=== PATIENT | female | born 1965 | race Caucasian/White ===

== ENCOUNTER 2016-12-08 23:33 | Emergency (ER) | payer OTHER ==
[2016-12-08 23:41] VITALS: RESP 18
--- NOTE | 2016-12-09 01:11 | ED ---
Fall HPI - General Chief Complaint: Fall Stated Complaint: fall Time Seen by Provider: 12/08/16 23:43 Source: patient, RN notes reviewed Mode of arrival: ambulatory Limitations: no limitations - History of Present Illness Initial Comments: 51-year-old femalePresents emergency Department with chief complaint fall, extremity injury. Patient states that she went back to her old house and states that she tripped and fell forward. Patient states fell on Monday. Patient states that she has continuation left knee pain, left toe pain, right elbow and right upper arm. Patient also complains of neck pain. She denies any significant head injury no LOC. She states she just very sore has been taking some [id number] medication with no relief.patient states she is able to ambulate but states is sore left knee. Patient has full range of motion of her right arm states that she has some bruising noted to her right humerus region. - Related Data Home Medications Medication Instructions Recorded Confirmed No Known Home Medications [No 05/10/15 12/08/16 Known Home Medications] Allergies Allergy/AdvReac Type Severity Reaction Status Date / Time clarithromycin [From Biaxin] Allergy Unknown Verified 12/08/16 23:41 codeine Allergy Unknown Verified 12/08/16 23:41 fentanyl Allergy Unknown Verified 12/08/16 23:41 influenza virus vaccine, Allergy Unknown Verified 12/08/16 23:41 specific [Influenza Virus Vacc,Specific] latex Allergy Unknown Verified 12/08/16 23:41 lorazepam [From Ativan] Allergy Unknown Verified 12/08/16 23:41 NSAIDS (Non-Steroidal Allergy Unknown Verified 12/08/16 23:41 Anti-Inflamma Penicillins Allergy Unknown Verified 12/08/16 23:41 Sulfa (Sulfonamide Allergy Anaphylaxis Verified 12/08/16 23:41 Antibiotics) Review of Systems ROS Statement: Those systems with pertinent positive or pertinent negative responses have been documented in the HPI. ROS Other: All systems not noted in ROS Statement are negative. 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 Absent: scleral icterus, conjunctival injection, periorbital swelling Neck exam: Present: normal inspection, tenderness (mild paraspinal tenderness no vertebral tenderness no step-off deformity), full ROM. Absent: meningismus, lymphadenopathy Respiratory exam: Present: normal lung sounds bilaterally. Absent: respiratory distress, wheezes, rales, rhonchi, stridor Cardiovascular Exam: Present: regular rate, normal rhythm, normal heart sounds. Absent: systolic murmur, diastolic murmur, rubs, gallop, clicks Extremities exam: Present: other (left knee there is small abrasion noted patient has pain with anterior surface of the knee though she has full range of motion. There is mild tenderness over the left first and second digit there is old scars noted, chronic deformity of the toes. Patient's legs are neurovascular intact, right upper arm humerus region there is an area of ecchymosis with surrounding tenderness patient's full range of motion of elbow and right shoulder. Patient's left upper extremity within normal limits. Patient does have equal pulses of all extremities.) Back exam: Present: normal inspection. Absent: full ROM, tenderness Neurological exam: Present: alert, oriented X3, CN II-XII intact, reflexes normal. Absent: motor sensory deficit Skin exam: Present: warm, dry, intact, normal color. Absent: rash Course Vital Signs 12/08/16 12/09/16 23:37 00:49 Temperature 98.8 F Pulse Rate 71 77 Respiratory 18 18 Rate Blood Pressure 138/65 127/58 O2 Sat by Pulse 95 100 Oximetry Medical Decision Making - Medical Decision Making 51-year-old female presented for fall, multiple injuries. Patient x-rays were reviewed by me and radiologist there is no acute fractures. Patient be discharged at this time. Disposition Clinical Impression: Fall, Multiple contusions, Left knee pain, Neck pain, Right arm pain Disposition: HOME SELF-CARE Condition: Stable Instructions: Contusion in Adults (ED) Additional Instructions: Please return to the Emergency Department if symptoms worsen or any other concerns. Referrals: Terrance Zamarripa MD [Primary Care Provider] - 1-2 days Time of Disposition: 01:24
--- NOTE | 2016-12-09 01:17 | XR ---
EXAM: XR Left Knee, 3 views CLINICAL HISTORY: Pain after fall. TECHNIQUE: Three views of the left knee. COMPARISON: No relevant prior studies available. FINDINGS: Bones/joints: Unremarkable. No acute fracture. No dislocation. Soft tissues: Prominent soft tissues related to habitus. No radiopaque foreign body. IMPRESSION: No radiographic evidence of acute osseous abnormality of the left knee.
--- NOTE | 2016-12-09 01:18 | XR ---
EXAM: XR Cervical Spine, 5 Views CLINICAL HISTORY: Pain. Fall. TECHNIQUE: Frontal, lateral, oblique and odontoid views of the cervical spine. COMPARISON: No relevant prior studies available. FINDINGS: Vertebrae: No radiographic evidence of acute fracture. Normal alignment. Disc spaces/neural foramina: No acute findings. No significant disc space or neural foraminal narrowing. Soft tissues: Unremarkable. IMPRESSION: No radiographic evidence of acute fracture or traumatic subluxation of the cervical spine.
--- NOTE | 2016-12-09 01:20 | XR ---
EXAM: XR Right Humerus, 2 Views CLINICAL HISTORY: Pain. Fall. TECHNIQUE: Frontal and lateral views of the right humerus. COMPARISON: No relevant prior studies available. FINDINGS: Bones/joints: No acute fracture. No dislocation. Soft tissues: No evidence of significant soft tissue abnormality. No radiopaque foreign body. IMPRESSION: No radiographic evidence of acute osseous abnormality of the right humerus.
--- NOTE | 2016-12-09 01:25 | XR ---
EXAM: XR Left Foot Complete, 3 Views CLINICAL HISTORY: Pain. Fall. TECHNIQUE: Frontal, lateral and oblique views of the left foot. COMPARISON: No relevant prior studies available. FINDINGS: Bones/joints: No radiographic evidence of acute fracture or dislocation of the left foot. Postsurgical changes of bunionectomy, hammertoe repair of the second toe and two screws along the distal fifth metatarsal. Apparent hammertoe deformities of the third and fifth toes. Soft tissues: Suspected soft tissue swelling along the lateral aspect of the foot. No radiopaque foreign body. IMPRESSION: 1. No radiographic evidence of acute fracture or dislocation of the left foot. 2. Postsurgical changes of the left foot. 3. Suspect mild soft tissue swelling along the lateral aspect of the foot. Correlate clinically.
[2016-12-09 01:44] VITALS: BP 144/78; PULSE 68; TEMP 97.5
== END 2016-12-09 01:42 | disposition home or self-care (01) ==
LOC: EC 23:33
DX: S40.021A Contusion of right upper arm, initial encounter (principal); S80.212A Abrasion, left knee, initial encounter; M54.2 Cervicalgia; M79.675 Pain in left toe(s); Z95.810 Presence of automatic (implantable) cardiac defibrillator; Z88.0 Allergy status to penicillin; Z88.1 Allergy status to other antibiotic agents; Z88.2 Allergy status to sulfonamides; Z88.5 Allergy status to narcotic agent; Z88.6 Allergy status to analgesic agent; Z88.7 Allergy status to serum and vaccine; Z88.8 Allergy status to other drugs, medicaments and biological substances; Z91.040 Latex allergy status; Z87.891 Personal history of nicotine dependence; W01.0XXA Fall on same level from slipping, tripping and stumbling without subsequent striking against object, initial encounter; Y92.019 Unspecified place in single-family (private) house as the place of occurrence of the external cause
CPT/HCPCS: 72050; 99283

== ENCOUNTER 2017-01-20 17:04 | Emergency (ER) | payer OTHER ==
[2017-01-20 17:11] VITALS: BP 141/68; PULSE 93; RESP 18; TEMP 97.9
--- NOTE | 2017-01-20 17:41 | XR ---
EXAMINATION TYPE: XR elbow limited RT DATE OF EXAM: 01/20/2017 COMPARISON: NONE HISTORY: Pain TECHNIQUE: 3 views FINDINGS: I see no fracture nor dislocation. Joint spaces are normal. There is no sign of elbow joint effusion. IMPRESSION: Negative right elbow exam
--- NOTE | 2017-01-20 17:42 | ED ---
General Adult HPI - General Chief complaint: Extremity Injury, Upper Stated complaint: Fall Time Seen by Provider: 01/20/17 17:13 Source: patient, RN notes reviewed, old records reviewed Mode of arrival: ambulatory Limitations: no limitations - History of Present Illness Initial comments: 51-year-old female presents emergency Department chief complaint of bilateral hip and lower back pain, right shoulder and elbow pain one week after a fall. Patient reports she slipped in a puddle and landed on her buttocks and right shoulder and elbow. Patient reports that she's been taking Motrin off and on but the pain is continue to persist. Patient states that she feels some Kirkey cracking whenever she walks with her hips. She denies any significant saddle anesthesias, or pain radiating down the legs. Patient states that she's had no fever or chills, denies any chest pain, shortness breath, vomiting, nausea, vomiting. - Related Data Previous Rx's Medication Instructions Recorded Hydrocodone/Acetaminophen [[place] 1 tab PO Q6HR PRN #15 tab 12/09/16 5-325] Cyclobenzaprine [Flexeril] 10 mg PO TID #20 tab 01/20/17 Allergies Allergy/AdvReac Type Severity Reaction Status Date / Time clarithromycin [From Biaxin] Allergy Unknown Verified 01/20/17 17:10 codeine Allergy Unknown Verified 01/20/17 17:10 fentanyl Allergy Unknown Verified 01/20/17 17:10 influenza virus vaccine, Allergy Unknown Verified 01/20/17 17:10 specific [Influenza Virus Vacc,Specific] latex Allergy Unknown Verified 01/20/17 17:10 lorazepam [From Ativan] Allergy Unknown Verified 01/20/17 17:10 NSAIDS (Non-Steroidal Allergy Unknown Verified 01/20/17 17:10 Anti-Inflamma Penicillins Allergy Unknown Verified 01/20/17 17:10 Sulfa (Sulfonamide Allergy Anaphylaxis Verified 01/20/17 17:10 Antibiotics) Review of Systems ROS Statement: Those systems with pertinent positive or pertinent negative responses have been documented in the HPI. ROS Other: All systems not noted in ROS Statement are negative. 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 No acute distress. Limitations: no limitations General appearance: alert, in no apparent distress Head exam: Present: atraumatic, normocephalic, normal inspection Eye exam: Present: normal appearance, PERRL, EOMI. Absent: scleral icterus, conjunctival injection, periorbital swelling ENT exam: Present: normal exam, mucous membranes moist Neck exam: Present: normal inspection. Absent: tenderness, meningismus, lymphadenopathy Respiratory exam: Present: normal lung sounds bilaterally. Absent: respiratory distress, wheezes, rales, rhonchi, stridor Cardiovascular Exam: Present: regular rate, normal rhythm, normal heart sounds. Absent: systolic murmur, diastolic murmur, rubs, gallop, clicks GI/Abdominal exam: Present: soft, normal bowel sounds. Absent: distended, tenderness, guarding, rebound, rigid Extremities exam: Present: normal inspection, full ROM, normal capillary refill. Absent: tenderness, pedal edema, joint swelling, calf tenderness Left Lower Leg exam: Present: full ROM Ankle exam: Present: normal inspection, full ROM Foot/Toe exam: Present: normal inspection, full ROM Neurovascular tendon exam: Present: no vascular compromise Gait: observed and normal Back exam: Present: normal inspection Neurological exam: Present: alert, oriented X3, CN II-XII intact Psychiatric exam: Present: normal affect, normal mood Course Vital Signs 01/20/17 17:07 Temperature 97.9 F Pulse Rate 93 Respiratory 18 Rate Blood Pressure 141/68 O2 Sat by Pulse 97 Oximetry Medical Decision Making - Medical Decision Making 51-year-old male presents emergency length of bilateral hip pain, right elbow and right shoulder pain after fall 1 week ago. She reports that she has full range of motion. She really complains of lower back and hip pain. Patient was given x-rays. All x-rays were reviewed and showed no evidence of any acute process. Patient reports that she is sober, does not want to take any narcotics. She has no major deformities or bruising noted over her hips. She is ambulatory without difficulty. Patient will be discharged at this time with a short course of muscle relaxers. Discussed falling up with orthopedic if symptoms continue persist. agrees to treatment plan will comply. Return parameters were discussed. - Radiology Data Radiology results: report reviewed Shoulder x-ray shows minimal calcific tendinitis. No evidence of fracture. X-rays negative for lumbar spine. Erythro [place] aorta noted. Negative pelvis and bilateral hip exam. Negative right elbow exam. Disposition Clinical Impression: Right elbow pain, Shoulder pain, right, Lumbar strain Disposition: HOME SELF-CARE Condition: Good Instructions: Hip Sprain (ED) Additional Instructions: Patient advised to alternate between ice and heat for the lower back and extremity pain. 20 minutes on 20 minutes off. Take anti-inflammatory medicine muscle relaxers. Recommended follow-up with PCP and orthopedic. Return to the emergency department if any alarming signs or symptoms occur. Prescriptions: Cyclobenzaprine [Flexeril] 10 mg PO TID #20 tab Referrals: Terrance Zamarripa MD [Primary Care Provider] - 1-2 days Golden Jauregui PAC [PHYSICIAN [employer]RO[employer] CAR REPAIRMAN] - 1-2 days Time of Disposition: 17:52
--- NOTE | 2017-01-20 17:42 | XR ---
EXAMINATION TYPE: XR shoulder limited RT DATE OF EXAM: 01/20/2017 COMPARISON: NONE HISTORY: Shoulder pain TECHNIQUE: 2 views FINDINGS: I see no fracture nor dislocation. There is minimal calcification at the greater tuberosity . AC joint is intact. IMPRESSION: Minimal calcific tendinitis. No fracture.
--- NOTE | 2017-01-20 17:44 | XR ---
EXAMINATION TYPE: XR Hip Bilateral and AP pelvis DATE OF EXAM: 01/20/2017 COMPARISON: NONE HISTORY: Hip pain TECHNIQUE: 5 views FINDINGS: The pelvic ring is intact. Proximal femurs and hip joints are intact. There is no sign of h ip dysplasia. Sacroiliac joints are intact. Hip joint spaces are fairly normal. IMPRESSION: Negative pelvis and bilateral hip exam.
--- NOTE | 2017-01-20 17:45 | XR ---
EXAMINATION TYPE: XR lumbar spine 2 or 3V DATE OF EXAM: 01/20/2017 COMPARISON: NONE HISTORY: Pain TECHNIQUE: 3 views FINDINGS: Vertebra have normal alignment. Posterior elements are intact. Abdominal aorta is atheromat ous. Sacroiliac joints are intact. Disc spaces are normal for age. IMPRESSION: Negative lumbar spine exam. Atheromatous aorta noted.
== END 2017-01-20 18:03 | disposition home or self-care (01) ==
LOC: EC 17:04
DX: S39.012A Strain of muscle, fascia and tendon of lower back, initial encounter (principal); M25.521 Pain in right elbow; M75.31 Calcific tendinitis of right shoulder; I70.0 Atherosclerosis of aorta; M25.551 Pain in right hip; M25.552 Pain in left hip; Z87.891 Personal history of nicotine dependence; Z88.0 Allergy status to penicillin; Z88.1 Allergy status to other antibiotic agents; Z88.2 Allergy status to sulfonamides; Z88.5 Allergy status to narcotic agent; Z88.6 Allergy status to analgesic agent; Z88.7 Allergy status to serum and vaccine; Z88.8 Allergy status to other drugs, medicaments and biological substances; Z91.040 Latex allergy status; Z98.890 Other specified postprocedural states; W01.0XXA Fall on same level from slipping, tripping and stumbling without subsequent striking against object, initial encounter
CPT/HCPCS: 72100; 73521; 99284

== ENCOUNTER → 2018-01-20 | Outpatient (CLI) | payer OTHER ==
[2018-01-20 09:52] LABS: Basophils # (A) 0.1 k/uL (0-0.2); Basophils % (A) 1 %; Eosinophils # (A) 0.5 k/uL (0-0.7); Eosinophils % (A) 6 %; HCT 41.4 % (34.0-46.0); HGB 13.3 gm/dL (11.4-16.0); Lymphocytes # (A) 3.2 k/uL (1.0-4.8); Lymphocytes % (A) 36 %; MCHC 32.1 g/dL (31.0-37.0); MCV 87.2 fL (80.0-100.0); Mean Platelet Volume 6.7; Monocytes # (A) 0.5 k/uL (0-1.0); Monocytes % (A) 5 %; Neutrophils # (A) 4.5 k/uL (1.3-7.7); Neutrophils % (A) 50 %; Platelet Count 275 k/uL (150-450); RBC 4.75 m/uL (3.80-5.40); RDW 14.2 % (11.5-15.5); WBC 8.9 k/uL (3.8-10.6)
[2018-01-20 10:14] LABS: ALT 22 U/L (9-52); AST 22 U/L (14-36); Albumin 4.3 g/dL (3.5-5.0); Alkaline Phosphatase 95 U/L (38-126); Anion Gap 9 mmol/L; Blood Urea Nitrogen 18 mg/dL (7-17); Calcium 9.6 mg/dL (8.4-10.2); Carbon Dioxide 27 mmol/L (22-30); Chloride 105 mmol/L (98-107); Cholesterol 230 mg/dL (<200); Glucose 96 mg/dL (74-99); HDL Cholesterol 48 mg/dL (40-60); LDL Cholesterol,Calculated 154 mg/dL (0-99); Potassium 4.8 mmol/L (3.5-5.1); Sodium 141 mmol/L (137-145); Total Bilirubin 0.5 mg/dL (0.2-1.3); Total Protein 7.4 g/dL (6.3-8.2); Triglycerides 140 mg/dL (<150)
[2018-01-20 10:24] LABS: T4, Free (Free Thyroxine) 0.72 ng/dL (0.78-2.19)
[2018-01-20 18:16] LABS: Hemoglobin A1C 5.4 % (4.0-6.0)
== END | disposition home or self-care (01) ==
LOC: LABWHC1 08:39
PROVIDERS: ATTEND Family Medicine
DX: I10 Essential (primary) hypertension (principal); E78.5 Hyperlipidemia, unspecified; E88.81 Metabolic syndrome and other insulin resistance
CPT/HCPCS: 36415; 80053; 80061; 82306; 83036; 84439; 84443; 85025

== ENCOUNTER → 2020-04-03 | Outpatient (CLI) | payer OTHER | END | disposition home or self-care (01) | LOC: LABWHC1 12:49 | PROVIDERS: ATTEND Surgery | DX: Z20.828 Contact with and (suspected) exposure to other viral communicable diseases (principal) ==

== ENCOUNTER 2022-08-13 23:40 | Emergency (ER) | payer OTHER ==
[2022-08-13 23:50] VITALS: BP 137/77; PULSE 86; RESP 18; TEMP 98
[2022-08-14] MEDS ORDERED: MECLIZINE 12.5 MG TAB PO STA (00:15)
--- NOTE | 2022-08-14 00:22 | ED ---
General Adult HPI - General Chief complaint: Neck Pain/Injury Stated complaint: Painful growth on back of neck Time Seen by Provider: 08/13/22 23:54 Source: patient Mode of arrival: ambulatory Limitations: no limitations - History of Present Illness Initial comments: Patient is a 57-year-old female presenting with chief complaint of "there is a growth on the back of my neck". Patient states that for several months she's noticed a painful lump to the back of her neck. Patient was seen by her PCP and instructed to follow-up with ENT. Patient has yet to follow up with ENT. She has no fever, chills, headache, vision or hearing changes, numbness, tingling, weakness. No injury or trauma. Patient also states that she at times has dizzy spells with moving her head. She states that she has had these dizzy spells for 15 years, she normally takes meclizine which helped alleviate her symptoms however she is currently out of meclizine. She states that she has had tympanostomy tubes replaced every few years to help with these dizzy spells but has not had them replaced in over a year and a half. She denies any chest pain, difficulty breathing, palpitations, abdominal pain, nausea, vomiting. - Related Data Previous Rx's Medication Instructions Recorded Hydrocodone/Acetaminophen [[place] 1 tab PO Q6HR PRN #15 tab 12/09/16 5-325] Cyclobenzaprine [Flexeril] 10 mg PO TID #20 tab 01/20/17 Meclizine [Antivert] 25 mg PO BID PRN #30 tab 08/14/22 Allergies Allergy/AdvReac Type Severity Reaction Status Date / Time clarithromycin [From Biaxin] Allergy Unknown Verified 08/13/22 23:47 codeine Allergy Unknown Verified 08/13/22 23:47 fentanyl Allergy Unknown Verified 08/13/22 23:47 influenza virus vaccine, Allergy Unknown Verified 08/13/22 23:47 specific [Influenza Virus Vacc,Specific] latex Allergy Unknown Verified 08/13/22 23:47 lorazepam [From Ativan] Allergy Unknown Verified 08/13/22 23:47 NSAIDS (Non-Steroidal Allergy Unknown Verified 08/13/22 23:47 Anti-Inflamma Penicillins Allergy Unknown Verified 08/13/22 23:47 Sulfa (Sulfonamide Allergy Anaphylaxis Verified 08/13/22 23:47 Antibiotics) Review of Systems ROS Statement: Those systems with pertinent positive or pertinent negative responses have been documented in the HPI. ROS Other: All systems not noted in ROS Statement are negative. 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 Absent: periorbital swelling Neck exam: Present: normal inspection, full ROM, lymphadenopathy. Absent: tenderness Respiratory exam: Present: normal lung sounds bilaterally. Absent: respiratory distress, wheezes, rales, rhonchi, stridor Cardiovascular Exam: Present: regular rate, normal rhythm, normal heart sounds. Absent: systolic murmur, diastolic murmur, rubs, gallop, clicks Neurological exam: Present: alert, oriented X3, CN II-XII intact Expanded Patient oriented to: Present: person, place, time Speech: Present: fluid speech Cranial nerves: EOM's Intact: Normal Eye Response: (4) open spontaneously Motor Response: (6) obeys commands Verbal Response: (5) oriented Kinder Total: 15 Psychiatric exam: Present: normal affect, normal mood Skin exam: Present: warm, dry, intact, normal color. Absent: rash Course Vital Signs 08/13/22 23:47 Temperature 98 F Pulse Rate 86 Respiratory 18 Rate Blood Pressure 137/77 O2 Sat by Pulse 98 Oximetry Medical Decision Making - Medical Decision Making Was pt. sent in by a medical professional or institution (, PA, DIRECTOR [employer], urgent care, hospital, or assisted...) When possible be specific @ -No Did you speak to anyone other than the patient for history (EMS, parent, family, police, friend...)? What history was obtained from this source @ -No Did you review nursing and triage notes (agree or disagree)? Why? @ -I reviewed and agree with nursing and triage notes Were old charts reviewed (outside hosp., previous admission, EMS record, old EKG, old radiological studies, urgent care reports/EKG's, assisted records)? Report findings @ -No old charts were reviewed Differential Diagnosis (chest pain, altered mental status, abdominal pain women, abdominal pain men, vaginal bleeding, weakness, fever, dyspnea, syncope, headache, dizziness, GI bleed, back pain, seizure, CVA, palpatations, mental health, musculoskeletal)? @ -MDM Differential Dizziness: Benign paroxysmal positional Vertigo, Menieres disease, otitis media, acoustic neuroma, vertebrobasilar insufficiency, cerebellar stroke, encephalitis, hypovolemic, arrhythmia, coronary artery syndrome, anemia this is not meant to be an all-inclusive list EKG interpreted by me (3pts min.). @ -As above X-rays interpreted by me (1pt min.). @ -None done CT interpreted by me (1pt min.). @ -None done U/S interpreted by me (1pt. min.). @ -None done What testing was considered but not performed or refused? (CT, X-rays, U/S, labs)? Why? @ -None What meds were considered but not given or refused? Why? @ -None Did you discuss the management of the patient with other professionals (professionals i.e. , PA, [employer], lab, RT, psych nurse, social security benefits interviewer, car chaser, teacher, air antisubmarine officer, hospice case manager)? Give summary @ -No Was smoking cessation discussed for >3mins.? @ -No Was critical care preformed (if so, how long)? @ -No Were there social determinants of health that impacted care today? How? (Homelessness, low income, unemployed, alcoholism, drug addiction, transportation, low edu. Level, literacy, decrease access to med. care, [facility], rehab)? @ -No Was there de-escalation of care discussed even if they declined (Discuss DNR or withdrawal of care, Hospice)? DNR status @ -No What co-morbidities impacted this encounter? (DM, HTN, Smoking, COPD, CAD, Cancer, CVA, ARF, Chemo, Hep., AIDS, mental health diagnosis, sleep apnea, morbid obesity)? @ -None Was patient admitted / discharged? Hospital course, mention meds given and route, prescriptions, significant lab abnormalities, going to OR and other pertinent info. @ -Patient is a 57-year-old female presenting with chief complaint of bump to the back of her neck for several months and dizzy spells for the last 15 years. These dizzy spells have remained unchanged for the past 15 years, patient in the past is taking meclizine which has alleviated her symptoms however she is currently out. No dizziness at this time. She is also concerned bump the back of her neck. Her PCP advised her to follow up with ENT but she has yet to do so. She is requesting referral. Physical examination is unremarkable. No foc al neurological deficits. She has full range of motion of the neck. Patient is provided with referral to ENT and a refill on her meclizine. Patient is agreeable discharge at this time. Follow-up with PCP. Report back to ER with any new or worsening symptoms. Discussed return parameters and answered all questions. Patient conveyed verbal understanding and agreed to the plan. I discussed this case in detail with my attending Dr. Ziegler Undiagnosed new problem with uncertain prognosis? @ -No Drug Therapy requiring intensive monitoring for toxicity (Heparin, Nitro, Insulin, Cardizem)? @ -No Were any procedures done? @ -No Diagnosis/symptom? @ -Lymphadenopathy Acute, or Chronic, or Acute on Chronic? @ -Acute Uncomplicated (without systemic symptoms) or Complicated (systemic symptoms)? @ -uncomplicated Side effects of treatment? @ -No Exacerbation, Progression, or Severe Exacerbation? @ -No Poses a threat to life or bodily function? How? (Chest pain, [place], DC, pneumonia, PE, COPD, DKA, ARF, appy, cholecystitis, CVA, Diverticulitis, Homicidal, S uicidal, threat to staff... and all critical care pts) @ -No Disposition Clinical Impression: BPPV (benign paroxysmal positional vertigo), Lymphadenopathy Disposition: HOME SELF-CARE Condition: Good Instructions (If sedation given, give patient instructions): Lymphadenopathy (ED), Benign Paroxysmal Positional Vertigo (ED) Additional Instructions: Follow-up with PCP and ENT. Report back to ER with any new or worsening symptoms. Prescriptions: Meclizine [Antivert] 25 mg PO BID PRN #30 tab PRN Reason: Vertigo Is patient prescribed a controlled substance at d/c from ED?: No Referrals: Rachael Brian MD [Primary Care Provider] - 1-2 days Julito Barron MD [STAFF PHYSICIAN] - 1-2 days Time of Disposition: 00:16
== END 2022-08-14 00:37 | disposition home or self-care (01) ==
LOC: EC 23:40
DX: H81.10 Benign paroxysmal vertigo, unspecified ear (principal); R59.1 Generalized enlarged lymph nodes; F41.9 Anxiety disorder, unspecified; Z88.5 Allergy status to narcotic agent; Z88.7 Allergy status to serum and vaccine; Z88.0 Allergy status to penicillin; Z88.8 Allergy status to other drugs, medicaments and biological substances; Z91.040 Latex allergy status; Z87.891 Personal history of nicotine dependence; Z88.1 Allergy status to other antibiotic agents; Z88.2 Allergy status to sulfonamides; Z88.6 Allergy status to analgesic agent
CPT/HCPCS: 99283

== ENCOUNTER → 2022-08-22 | Outpatient (CLI) | payer OTHER ==
[2022-08-22 16:47] LABS: HCT 43.2 % (37.2-46.3); HGB 13.8 g/dL (12.0-15.0); MCH 27.9 pg (27.0-32.0); MCHC 31.9 g/dL (32.0-37.0); MCV 87.3 fL (80.0-97.0); Mean Platelet Volume 10.3 fL (9.5-12.2); NRBC Per 100 WBC 0 /100 WBCS (0.0-0.0); Platelet Count 258 X 10*3/uL (140-440); RBC 4.95 X 10*6/uL (4.10-5.20); RDW 14.5 % (11.5-14.5); WBC 9.11 X 10*3/uL (4.50-10.00)
[2022-08-22 17:08] LABS: African American GFR (CKD) 94.5 (60.0-200.0); Anion Gap 13.8 mmol/L (10.00-18.00); Blood Urea Nitrogen 13.9 mg/dL (9.0-27.0); Non-African American GFR(CKD) 81.5 (60.0-200.0); Potassium 4.5 mmol/L (3.5-5.5)
== END | disposition home or self-care (01) ==
LOC: LABPAT 07:45
PROVIDERS: ATTEND Internal Medicine
DX: Z01.812 Encounter for preprocedural laboratory examination (principal); R07.9 Chest pain, unspecified
CPT/HCPCS: 80051; 82565; 84520; 85027

== ENCOUNTER → 2022-08-23 | Day surgery (SDC) | payer OTHER ==
[~2022-08-23] MED LIST: NITROGLYCERIN SL TABS 0.4 MG TAB SUBLINGUAL PRN; SODIUM CHLORIDE 0.9% 1,000 ML in EMPTY BAG 1 BAG IV SCH
[2022-08-23 10:57] VITALS: BP 175/111; PULSE 109; RESP 18; TEMP 97
== END ==
LOC: CATHCVL 10:20
PROVIDERS: ATTEND Internal Medicine
DX: R07.9 Chest pain, unspecified (principal); Z53.9 Procedure and treatment not carried out, unspecified reason

== ENCOUNTER 2022-10-03 22:04 | Emergency (ER) | payer OTHER ==
[2022-10-03 22:24] VITALS: BP 155/84; PULSE 94; RESP 17; TEMP 98
--- NOTE | 2022-10-04 | ED ---
General Adult HPI - General Chief complaint: ENT Stated complaint: Sore throat, Congestion, Dental Pain Time Seen by Provider: 10/03/22 23:40 Source: patient, RN notes reviewed Mode of arrival: ambulatory Limitations: no limitations - History of Present Illness Initial comments: Patient is a 49-year-old female presenting to the ER today with a chief comp laint of dental pain. States she is purulent blister yesterday which prompted her visit to the ER today. She has a appointment with a dentist in two days. She reports recent chills or night sweats. Denies any fevers. pt states the pain is made worse with hot, cold, chewing and touch. reports radiating pain to her nose and eye. pt takes tylenol at home for pain. pt states she has a bump on the back of her neck she recently noticed denies pain with touch. denies headaches, chest pain, shortness of breath, abdominal pain. - Related Data Home Medications Medication Instructions Recorded Confirmed Acetaminophen Tab [Tylenol] 650 mg PO Q6H 08/23/22 09/16/22 Previous Rx's Medication Instructions Recorded Meclizine [Antivert] 25 mg PO BID PRN #30 tab 08/14/22 HYDROcodone/APAP 7.5-325MG [[place] 1 tab PO Q6HR PRN 3 Days #12 tab 10/04/22 7.5-325] Allergies Allergy/AdvReac Type Severity Reaction Status Date / Time clarithromycin [From Biaxin] Allergy Severe Anaphylaxis Verified 10/03/22 22:13 fentanyl Allergy Severe Anaphylaxis Verified 10/03/22 22:13 hydromorphone [From Dilaudid] Allergy Severe Anaphylaxis Verified 10/03/22 22:13 influenza virus vaccine, Allergy Severe Rash/Hives Verified 10/03/22 22:13 specific [Influenza Virus Vacc,Specific] latex Allergy Severe Anaphylaxis Verified 10/03/22 22:13 NSAIDS (Non-Steroidal Allergy Severe Anaphylaxis Verified 10/03/22 22:13 Anti-Inflamma Penicillins Allergy Severe Anaphylaxis Verified 10/03/22 22:13 Sulfa (Sulfonamide Allergy Severe Anaphylaxis Verified 10/03/22 22:13 Antibiotics) codeine Allergy Rash/Hives Verified 10/03/22 22:13 Iodinated Contrast Media Allergy Rash/Hives Verified 10/03/22 22:13 lorazepam [From Ativan] Allergy Unknown Verified 10/03/22 22:13 morphine Allergy Hallucinati Verified 10/03/22 22:13 ons diphenhydramine AdvReac Unknown Verified 10/03/22 22:13 [From Benadryl] Review of Systems ROS Statement: Those systems with pertinent positive or pertinent negative responses have been documented in the HPI. ROS Other: All systems not noted in ROS Statement are negative. Past Medical History Past Medical History: Cancer, Musculoskeletal Disorder, Neurologic Disorder Additional Past Medical History / Comment(s): muliple sclerosis, colon cancer with surgery, cervical/uterine and ovarian cancer/surgery, vertigo History of Any Multi-Drug Resistant Organisms: None Reported Past Surgical History: Back Surgery, Bowel Resection, Cholecystectomy, Ear Surgery, Hysterectomy Additional Past Surgical History / Comment(s): Bilateral corrective toe surgery with hardware, L shoulder rotator cuff repair, lower back surgery, removed 4 cancerous growths from colon, total hysterectomy except left ovary, bilateral myringotomies with tubes. Past Anesthesia/Blood Transfusion Reactions: Motion Sickness, Postoperative Nausea & Vomiting (PONV) Additional Past Anesthesia/Blood Transfusion Reaction / Comment(s): Pt has never received blood. Past Psychological History: Anxiety Smoking Status: Former smoker General Exam Limitations: no limitations General appearance: alert, in no apparent distress ENT exam: Present: mucous membranes moist, other (broken left incisor with surrounding erythema, tenderness to left maxillary sinus and TMJ ). Absent: normal exam Neck exam: Present: full ROM, lymphadenopathy (left occipital lymph node palpated ). Absent: tenderness, meningismus Respiratory exam: Present: normal lung sounds bilaterally. Absent: respiratory distress, wheezes, rales, rhonchi, stridor Cardiovascular Exam: Present: regular rate, normal rhythm, normal heart sounds. Absent: systolic murmur, diastolic murmur, rubs, gallop, clicks Course Vital Signs 10/03/22 22:13 Temperature 98.0 F Pulse Rate 94 Respiratory 17 Rate Blood Pressure 155/84 O2 Sat by Pulse 98 Oximetry Medical Decision Making - Medical Decision Making Was pt. sent in by a medical professional or institution (, PA, NEUROLOGY PROFESSOR, urgent care, hospital, or intermediate...) When possible be specific @ -No Did you speak to anyone other than the patient for history (EMS, parent, family, police, friend...)? What history was obtained from this source @ -No Did you review nursing and triage notes (agree or disagree)? Why? @ -I reviewed and agree with nursing and triage notes Were old charts reviewed (outside hosp., previous admission, EMS record, old EKG, old radiological studies, urgent care reports/EKG's, intermediate records)? Report findings @ -No old charts were reviewed Differential Diagnosis (chest pain, altered mental status, abdominal pain women, abdominal pain men, vaginal bleeding, weakness, fever, dyspnea, syncope, headache, dizziness, GI bleed, back pain, seizure, CVA, palpatations, mental health, musculoskeletal)? @ -Dental infection, dental pain, tooth abscess EKG interpreted by me (3pts min.). @ -None X-rays interpreted by me (1pt min.). @ -None done CT interpreted by me (1pt min.). @ -None done U/S interpreted by me (1pt. min.). @ -None done What testing was considered but not performed or refused? (CT, X-rays, U/S, labs)? Why? @ -None What meds were considered but not given or refused? Why? @ -None Did you discuss the management of the patient with other professionals (professionals i.e. DrJacqueline, PA, NEUROLOGY PROFESSOR, lab, RT, psych nurse, social services specialist, bleacher lard, teacher, security officers and guards, case operator)? Give summary @ -No Was smoking cessation discussed for >3mins.? @ -No Was critical care preformed (if so, how long)? @ -No Were there social determinants of health that impacted care today? How? (Homeles sness, low income, unemployed, alcoholism, drug addiction, transportation, low edu. Level, literacy, decrease access to med. care, senior care, rehab)? @ -No Was there de-escalation of care discussed even if they declined (Discuss DNR or withdrawal of care, Hospice)? DNR status @ -No What co-morbidities impacted this encounter? (DM, HTN, Smoking, COPD, CAD, Cancer, CVA, ARF, Chemo, Hep., AIDS, mental health diagnosis, sleep apnea, morbid obesity)? @ -None Was patient admitted / discharged? Hospital course, mention meds given and route, prescriptions, significant lab abnormalities, going to OR and other pertinent info. @ -Discharge patient has multiple drug ALLERGIES and is uncomfortable starting any oral antibiotics given her ALLERGIES. She is requesting something for the pain she does have an appointment with her dentist in 2 days. Patient is discharged in stable condition with normal vitals. Undiagnosed new problem with uncertain prognosis? @ -No Drug Therapy requiring intensive monitoring for toxicity (Heparin, Nitro, Insulin, Cardizem)? @ -No Were any procedures done? @ -No Diagnosis/symptom? @ -Dental pain Acute, or Chronic, or Acute on Chronic? @ -Acute Uncomplicated (without systemic symptoms) or Complicated (systemic symptoms)? @ -Uncomplicated Side effects of treatment? @ -No Exacerbation, Progression, or Severe Exacerbation? @ -No Poses a threat to life or bodily function? How? (Chest pain, [place], [place], pneumonia, PE, COPD, DKA, ARF, appy, cholecystitis, CVA, Diverticulitis, Homicidal, Suicidal, threat to staff... and all critical care pts) @ -No Disposition Clinical Impression: Pain, dental Disposition: HOME SELF-CARE Condition: Stable Instructions (If sedation given, give patient instructions): Toothache (ED) Additional Instructions: Please return to the Emergency Department if symptoms worsen or any other concerns. Prescriptions: HYDROcodone/APAP 7.5-325MG [Independence 7.5-325] 1 tab PO Q6HR PRN 3 Days #12 tab PRN Reason: Pain Is patient prescribed a controlled substance at d/c from ED?: Yes When asked, does pt state using other controlled substances?: No If prescribed controlled substance>3 days was MAPS reviewed?: Prescribed <3 Days Referrals: Rachael Brian MD [Primary Care Provider] - 1-2 days Time of Disposition: 00:03
== END 2022-10-04 00:16 | disposition home or self-care (01) ==
LOC: EC 22:04
DX: K08.89 Other specified disorders of teeth and supporting structures (principal); Z87.891 Personal history of nicotine dependence; Z88.0 Allergy status to penicillin; Z88.1 Allergy status to other antibiotic agents; Z88.2 Allergy status to sulfonamides; Z88.5 Allergy status to narcotic agent; Z88.6 Allergy status to analgesic agent; Z88.7 Allergy status to serum and vaccine; Z88.8 Allergy status to other drugs, medicaments and biological substances; Z91.040 Latex allergy status; Z90.49 Acquired absence of other specified parts of digestive tract
CPT/HCPCS: 99283

== ENCOUNTER → 2022-10-21 | Outpatient (CLI) | payer OTHER ==
--- NOTE | 2022-10-21 13:57 | US ---
EXAMINATION TYPE: US venous doppler duplex UE LT DATE OF EXAM: 10/21/2022 COMPARISON: NONE CLINICAL INDICATION: Female, 57 years old with history of M79.6020LUE; swelling. SIDE PERFORMED: Left Left Arm: IJV,Subclavian, axillary,brachial,basilic,cephalic, radial , and ulnar veins interrogated. Negative for DVT. Grayscale, color doppler, spectral doppler imaging performed of the deep veins of the left upper extr emity. There is normal flow, compressibility and vascular waveforms. IMPRESSION: No acute deep or superficial venous thrombosis in the left upper extremity.
--- NOTE | 2022-10-21 14:46 | XR ---
EXAMINATION TYPE: XR humerus LT DATE OF EXAM: 10/21/2022 CLINICAL HISTORY: Pain. History of rotator cuff surgery years ago. TECHNIQUE: Two views of the left humerus are obtained. COMPARISON: None. FINDINGS: There is no acute fracture or dislocation seen in the left humerus. The shoulder and elbo w joints appear within normal limits. The overlying soft tissue appears within normal limits. IMPRESSION: As above.
== END | disposition home or self-care (01) ==
LOC: RADUSWWP 13:14
PROVIDERS: ATTEND Family Medicine
DX: M79.602 Pain in left arm (principal)

== ENCOUNTER → 2022-11-18 | Outpatient (CLI) | payer OTHER | END | disposition home or self-care (01) | LOC: RADUSWWP 09:30 | PROVIDERS: ATTEND Family Medicine | DX: Z53.9 Procedure and treatment not carried out, unspecified reason (principal) ==

== ENCOUNTER → 2023-09-29 | Outpatient (CLI) | payer OTHER ==
--- NOTE | 2023-09-29 19:09 | XR ---
EXAMINATION TYPE: XR knee complete bilateral DATE OF EXAM: 09/29/2023 6:31 PM CLINICAL INDICATION:Female, 58 years old with history of M25.562 M25.561 PAIN IN LEFT KNEE PAIN IN RI T KN; [facility] COMPARISON: 01/07/2017. TECHNIQUE: XR knee complete bilateral; examined in Frontal, lateral and oblique projections. FINDINGS: No evidence of any acute osseous pathology, soft tissue swelling, or joint effusion is no radha. Tricompartmental osteophyte formation involving the femoral condyles, tibial plateau and patella . Mild joint space narrowing.A fabella is present bilaterally. IMPRESSION: 1. No acute osseous pathology. 2. Bilateral Mild tricompartmental osteoarthritic changes.
== END | disposition home or self-care (01) ==
LOC: RADXRMAIN 17:46
PROVIDERS: ATTEND Family Medicine
DX: M17.0 Bilateral primary osteoarthritis of knee (principal)

== ENCOUNTER → 2023-11-20 | Outpatient (CLI) | payer OTHER ==
--- NOTE | 2023-11-20 16:09 | US ---
EXAMINATION TYPE: US extremity nonvasc mass LT DATE OF EXAM: 11/20/2023 COMPARISON: NONE CLINICAL INDICATION: Female, 58 years old with history of R22.9 LOCALIZED SWELLING, MASS AND LUMP, UN SPECIFI; palpable on left forearm x 3 months, painful, discoloration, no injury TECHNIQUE: Soft tissue left arm FINDINGS: 0.7 x 0.4 x 0.7cm hyperechoic area, no vascularity, probable lipoma IMPRESSION: Hyperechoic lesion in the subcutaneous tissues probably representing a lipoma. This can b e confirmed with CT with palpable marker placement.
== END | disposition home or self-care (01) ==
LOC: RADUSWWP 12:36
PROVIDERS: ATTEND Family Medicine
DX: R22.9 Localized swelling, mass and lump, unspecified (principal); M79.609 Pain in unspecified limb

== ENCOUNTER → 2023-12-26 | Day surgery (SDC) | payer OTHER ==
[2023-12-21 11:31] VITALS: BMI 36.8
[~2023-12-26] MED LIST changes: +DEXAMETHASONE SOD PHOSPHATE 4 MG/ML 1 ML VIAL IV ONE; +HEPARIN SODIUM,PORCINE 5,000 UNIT/ML 1 ML VIAL SQ PRN; +LIDOCAINE 1% (10MG/ML) FOR IV START INTRADERMA PRN; +LIDOCAINE 1% INJ 10MG/ML (20 ML MDV) ONE; +MIDAZOLAM 2 MG/2 ML VIAL ONE; -NITROGLYCERIN SL TABS 0.4 MG TAB SUBLINGUAL PRN; +PROPOFOL 10 MG/ML 20 ML VIAL IV ONE; -SODIUM CHLORIDE 0.9% 1,000 ML in EMPTY BAG 1 BAG IV SCH
[2023-12-26] MEDS: IV FLUID CONTINUATION 1,000 ML IV ONE (06:30)
[2023-12-26] MEDS: ACETAMINOPHEN TAB 500 MG TAB PO PRN (07:03)
[2023-12-26] MEDS: ONDANSETRON 4 MG/2 ML VIAL IVP ONE (07:03)
[2023-12-26] MEDS: LACTATED RINGERS 1,000 ML IV SCH (07:12)
[2023-12-26 07:15] VITALS: TEMP 97.8
[2023-12-26] MEDS: LIDOCAINE 1%-EPI 1:100,000 20 ML VIAL SQ ONE (07:56)
--- NOTE | 2023-12-26 08:20 | P.OP ---
Date of Procedure: 12/26/23 Preoperative Diagnosis: Left arm lipoma Postoperative Diagnosis: Left arm lipoma Procedure(s) Performed: Excision of left arm lipoma Anesthesia: BEATRIZ Surgeon: Julien Scott Estimated Blood Loss (ml): 5 Pathology: other (Left arm lipoma) Condition: stable Disposition: PACU Description of Procedure: The patient is placed on the operative table in supine position. She received gen IV sedation. Her left arm was prepped and draped you sterile fashion. A skin incision was made on the left arm lipoma. Then using blunt sharp/electrocautery the lipoma was dissected free and sent to pathology. Hemostasis achieved. Skin was closed interrupted 3-0 Monocryl suture. Dermabond dressing was applied. Patient tolerated well. She was sent to recovery room in stable condition.
[2023-12-26 08:37] VITALS: RESP 16
[2023-12-26 08:54] VITALS: BP 125/84; PULSE 84
== END | disposition home or self-care (01) ==
LOC: OR 05:59
PROVIDERS: ATTEND Surgery
DX: D17.22 Benign lipomatous neoplasm of skin and subcutaneous tissue of left arm
CPT/HCPCS: 88304

== ENCOUNTER → 2024-01-03 | Outpatient (CLI) | payer OTHER ==
--- NOTE | 2024-01-03 16:05 | US ---
EXAMINATION TYPE: US thyroid st tissue head/neck DATE OF EXAM: 01/03/2024 COMPARISON: NONE CLINICAL INDICATION: Female, 58 years old with history of D17.22 LIPOMA; Hx lipomas, lumps felt at th e base of the skull posterior right neck TECHNIQUE: Multiple grayscale and color Doppler ultrasound images of the right posterior neck at the patient's region of palpable abnormality were obtained. FINDINGS/IMPRESSION: Patient's palpable areas correspond to two hypoechoic solid lesions within the s ubcutaneous fat layer. Larger area measures 1.8x0.5x1.5cm. Smaller area measures 0.8x0.3x0.9cm. These may represent lipomas with small lymph nodes not excluded. This can be further evaluated with CT nec k with IV contrast as clinically indicated.
== END | disposition home or self-care (01) ==
LOC: RADUSWWP 15:28
PROVIDERS: ATTEND Surgery
DX: D17.22 Benign lipomatous neoplasm of skin and subcutaneous tissue of left arm (principal)
CPT/HCPCS: 76536

== ENCOUNTER → 2024-05-20 | Outpatient (CLI) | payer OTHER ==
[2024-05-20 15:08] LABS: HCT 40.2 % (37.2-46.3); MCH 27.8 pg (27.0-32.0); MCHC 32.3 g/dL (32.0-37.0); MCV 85.9 FL (80.0-97.0); Mean Platelet Volume 9.9 FL (9.5-12.2); NRBC Per 100 WBC 0 X 10*3/uL (0.00-0.01); Platelet Count 273 X 10*3/uL (140-440); RBC 4.68 X 10*6/uL (4.10-5.20); RDW 14.2 % (11.5-14.5); WBC 9.03 X 10*3/uL (4.50-10.00)
[2024-05-20 15:36] LABS: Blood Urea Nitrogen 14.4 mg/dL (9.0-27.0); Carbon Dioxide 27.5 mmol/L (21.6-31.8); Chloride 104 mmol/L (96-109); Potassium 4.5 mmol/L (3.5-5.5); Sodium 140 mmol/L (135-145)
== END | disposition home or self-care (01) ==
LOC: LABPAT 11:37
PROVIDERS: ATTEND Internal Medicine
DX: Z01.812 Encounter for preprocedural laboratory examination (principal); R07.9 Chest pain, unspecified; R06.02 Shortness of breath; R00.2 Palpitations
CPT/HCPCS: 80051; 82565; 84520; 85027

== ENCOUNTER → 2024-08-06 | Outpatient (CLI) | payer OTHER ==
--- NOTE | 2024-08-06 16:58 | US ---
EXAMINATION TYPE: US thyroid st tissue head/neck DATE OF EXAM: 08/06/2024 COMPARISON: EXAMINATION TYPE: US thyroid st tissue head/neck DATE OF EXAM: 08/06/2024 COMPARISON: Ultrasound 01/03/2024 CLINICAL INDICATION: Female, 59 years old with history of D17.0 ALF LIPOMATOUS NEOPLM OF SKIN, SUBCU OF HEAD; right posterior neck lump. TECHNIQUE: Multiple grayscale and color Doppler images of the right posterior neck soft tissues were obtained. FINDINGS/IMPRESSION: There is a round anechoic avascular nodule measuring 0.6 x 0.4 cm within the rig ht posterior neck. This may represent a lymph node versus other etiologies such as a lipoma. Addition al previously seen lesion is not well-seen on today's exam. Consider further evaluation with CT if th ere is continued clinical concern. [facility], , 08/06/2024 4:56 PM
== END | disposition home or self-care (01) ==
LOC: RADUSWWP 16:14
PROVIDERS: ATTEND Surgery
DX: E04.1 Nontoxic single thyroid nodule (principal); D17.0 Benign lipomatous neoplasm of skin and subcutaneous tissue of head, face and neck
CPT/HCPCS: 76536

== ENCOUNTER 2024-11-09 15:23 | Emergency (ER) | payer OTHER ==
--- NOTE | 2024-11-09 16:00 | ED ---
General Adult HPI - General Chief complaint: Extremity Injury, Upper Stated complaint: Left Shoulder Injury Time Seen by Provider: 11/09/24 15:40 Source: patient, RN notes reviewed Mode of arrival: ambulatory Limitations: no limitations - History of Present Illness Initial comments: 59-year-old female presents to the emergency department for evaluation of left shoulder pain. Patient states that this started after pulling a heavy object. She does report a prior rotator cuff repair. She notes that the pain is worse with range of motion of the shoulder. She notes decreased range of motion due to the pain. She denies any other injury. Denies any chest pain, shortness of breath. - Related Data Home Medications Medication Instructions Recorded Confirmed Acetaminophen [Tylenol Arthritis] 1 tab PO BID PRN 04/22/24 07/05/24 Allergies Allergy/AdvReac Type Severity Reaction Status Date / Time clarithromycin [From Biaxin] Allergy Severe Anaphylaxis Verified 07/05/24 08:57 fentanyl Allergy Severe Anaphylaxis Verified 07/05/24 08:57 hydromorphone [From Dilaudid] Allergy Severe Anaphylaxis Verified 07/05/24 08:57 influenza virus vaccine, Allergy Severe Rash/Hives Verified 07/05/24 08:57 specific [Influenza Virus Vacc,Specific] latex Allergy Severe Anaphylaxis Verified 07/05/24 08:57 NSAIDS (Non-Steroidal Allergy Severe Anaphylaxis Verified 07/05/24 08:57 Anti-Inflamma Penicillins Allergy Severe Anaphylaxis Verified 07/05/24 08:57 Sulfa (Sulfonamide Allergy Severe Anaphylaxis Verified 07/05/24 08:57 Antibiotics) codeine Allergy Rash/Hives Verified 07/05/24 08:57 Iodinated Contrast Media Allergy Rash/Hives Verified 07/05/24 08:57 lorazepam [From Ativan] Allergy Rash/Hives Verified 05/28/24 12:43 morphine Allergy Hallucinati Verified 05/28/24 12:43 ons diphenhydramine AdvReac Rapid Verified 05/28/24 12:43 [From Benadryl] Heart Rate Review of Systems ROS Statement: Those systems with pertinent positive or pertinent negative responses have been documented in the HPI. ROS Other: All systems not noted in ROS Statement are negative. Past Medical History Past Medical History: Cancer, Chest Pain / Angina, Musculoskeletal Disorder, Neurologic Disorder, Osteoarthritis (OA), Seizure Disorder, Syncope Additional Past Medical History / Comment(s): multiple sclerosis- some numbing sensations and nerve pain.hx colon cancer with surgery, cervical/uterine and ovarian cancer/surgery. vertigo inner ear issues. 3 Seizures after a fall, last seizure 30 yrs ago.(no meds). CHANGE IN BOWEL HABITS, N/V WITH EATING, occ PAIN IN MID CHEST AREA,fatigue and sweaty when stressed. HAS ORAL TUMOR TOP OF MOUTH-impairs ability to fully open mouth and to swallow to be removed in 07/2024 (ORTIZ) hx lump on thyroid - then told when ernie for thyroid bx per U/S not able to locate thyroid. bumps on skin. History of Any Multi-Drug Resistant Organisms: None Reported Past Surgical History: Back Surgery, Bowel Resection, Cholecystectomy, Ear Surgery, Hysterectomy, Orthopedic Surgery, Tonsillectomy Additional Past Surgical History / Comment(s): Bilateral corrective toe surgery with hardware, L shoulder rotator cuff repair, lower back surgery, removed 4 cancerous growths from colon, total hysterectomy except left ovary, bilateral myringotomies with tubes. REMOVAL LIPOMA LT ARM 12/26/23, thyroid biopsy attempted and pt reports they told her they could not find her thyroid, nasal septoplasty BMT Past Anesthesia/Blood Transfusion Reactions: Motion Sickness, Postoperative Nausea & Vomiting (PONV) Additional Past Anesthesia/Blood Transfusion Reaction / Comment(s): Pt has never received blood. Past Psychological History: Anxiety, Depression Smoking Status: Former smoker - Past Family History Father Family Medical History: Coronary Artery Disease (CAD) Additional Family Medical History / Comment(s): parkinsons Mother Family Medical History: Cancer, Dementia, Hypertension Additional Family Medical History / Comment(s): bladder cancer Sister(s) History Unknown: Yes Family Medical History: Cancer Additional Family Medical History / Comment(s): breast General Exam Limitations: no limitations General appearance: alert, in no apparent distress Head exam: Present: atraumatic, normocephalic, normal inspection Eye exam: Present: normal appearance, PERRL, EOMI. Absent: scleral icterus, conjunctival injection, periorbital swelling ENT exam: Present: normal exam, mucous membranes moist Neck exam: Present: normal inspection, full ROM. Absent: tenderness, meningismus, lymphadenopathy Respiratory exam: Present: normal lung sounds bilaterally. Absent: respiratory distress, wheezes, rales, rhonchi, stridor Cardiovascular Exam: Present: regular rate, normal rhythm, normal heart sounds. Absent: systolic murmur, diastolic murmur, rubs, gallop, clicks Extremities exam: Present: tenderness (Tenderness to the left posterior shoulder), normal capillary refill, other (Radial pulses 2+). Absent: full ROM (Decreased range of motion of the left shoulder due to pain with flexion, extension, abduction), pedal edema, joint swelling, calf tenderness Neurological exam: Present: alert, oriented X3 Psychiatric exam: Present: normal affect, normal mood Skin exam: Present: warm, dry, intact, normal color. Absent: rash Course Vital Signs 11/09/24 11/09/24 15:35 17:26 Temperature 97.8 F 98.0 F Pulse Rate 76 68 Respiratory 16 20 Rate Blood Pressure 162/82 149/81 O2 Sat by Pulse 98 98 Oximetry Medical Decision Making - Medical Decision Making Was pt. sent in by a medical professional or institution (, PA, EXTRUSION LINE OPERATOR, urgent care, hospital, or half-way...) When possible be specific @ -No Did you speak to anyone other than the patient for history (EMS, parent, family, police, friend...)? What history was obtained from this source @ -No Did you review nursing and triage notes (agree or disagree)? Why? @ -I reviewed and agree with nursing and triage notes Were old charts reviewed (outside hosp., previous admission, EMS record, old EKG, old radiological studies, urgent care reports/EKG's, half-way records)? Report findings @ -No old charts were reviewed Differential Diagnosis (chest pain, altered mental status, abdominal pain women, abdominal pain men, vaginal bleeding, weakness, fever, dyspnea, syncope, headache, dizziness, GI bleed, back pain, seizure, CVA, palpatations, mental health, musculoskeletal)? @ -Differential Musculoskeletal Muscular strain, contusion, ligament sprain, fracture, arthritis, septic arthritis, bursitis, cellulitis, muscle spasm, nerve compression, DVT, arterial occlusion, herpes zoster, electrolyte abnormality, tumor.... This is not meant to be in all inclusive list EKG interpreted by me (3pts min.). @ -None X-rays interpreted by me (1pt min.). @ -X-ray of the left shoulder revealsNo acute process, calcific density adjacent to the greater tuberosity could reflect calcific tendinitis, mild to moderate degenerative arthritis CT interpreted by me (1pt min.). @ -None done U/S interpreted by me (1pt. min.). @ -None done What testing was considered but not performed or refused? (CT, X-rays, U/S, labs)? Why? @ -None What meds were considered but not given or refused? Why? @ -None Did you discuss the management of the patient with other professionals (professionals i.e. DrJacqueline, PA, EXTRUSION LINE OPERATOR, lab, RT, psych nurse, renal social worker, advanced clinical specialist, teacher, school services officer, assistant case manager)? Give summary @ -No Was smoking cessation discussed for >3mins.? @ -No Was critical care preformed (if so, how long)? @ -No Were there social determinants of health that impacted care today? How? (Homelessness, low income, unemployed, alcoholism, drug addiction, transportation, low edu. Level, literacy, decrease access to med. care, assisted, rehab)? @ -No Was there de-escalation of care discussed even if they declined (Discuss DNR or withdrawal of care, Hospice)? DNR status @ -No What co-morbidities impacted this encounter? (DM, HTN, Smoking, COPD, CAD, Cancer, CVA, ARF, Chemo, Hep., AIDS, mental health diagnosis, sleep apnea, morbid obesity)? @ -None Was patient admitted / discharged? Hospital course, mention meds given and route, prescriptions, significant lab abnormalities, going to OR and other pertinent info. @ -Discharge. Patient presents emergency department for evaluation of shoulder pain. X-rays obtained revealing no acute process, calcific density at the greater tuberosity which could represent calcific tendinitis, mild to moderate degenerative arthritis. Recommended symptomatic treatment at this time and follow-up with her primary care provider. She is understanding agreeable with plan. Patient stable at time of discharge. Case discussed with Dr. Bernal Undiagnosed new problem with uncertain prognosis? @ -No Drug Therapy requiring intensive monitoring for toxicity (Heparin, Nitro, Insulin, Cardizem)? @ -No Were any procedures done? @ -No Diagnosis/symptom? @ -Shoulder pain, tendinitis Acute, or Chronic, or Acute on Chronic? @ -Acute Uncomplicated (without systemic symptoms) or Complicated (systemic symptoms)? @ -Uncomplicated Side effects of treatment? @ -No Exacerbation, Progression, or Severe Exacerbation? @ -No Poses a threat to life or bodily function? How? (Chest pain, [place], [place], pneumonia, PE, COPD, DKA, ARF, appy, cholecystitis, CVA, Diverticulitis, Homicidal, Suicidal, threat to staff... and all critical care pts) @ -No Disposition Clinical Impression: Sprain of left shoulder Disposition: HOME SELF-CARE Condition: Stable Instructions (If sedation given, give patient instructions): Shoulder Sprain (ED) Additional Instructions: Please follow-up with your primary care provider and orthopedic provider. Return to the emergency department for new or worsening symptoms. Is patient prescribed a controlled substance at d/c from ED?: No Referrals: Rachael Brian MD [Primary Care Provider] - 1-2 days
--- NOTE | 2024-11-09 16:30 | XR ---
EXAMINATION TYPE: XR shoulder complete LT DATE OF EXAM: 11/09/2024 4:17 PM COMPARISON: Left humerus radiographs 10/21/2022. CLINICAL INDICATION: Female, 59 years old with history of pain; PHH, pain TECHNIQUE: XR shoulder complete LT; examined in AP, internally rotated and scapular Y projections. FINDINGS: No acute fracture or dislocation. Calcific density near the distal rotator cuff insertion. Mild to mo derate glenohumeral and acromioclavicular degenerative osteophytic arthritis. Partially visualized le ft lung appears clear. IMPRESSION: 1. No acute osseous pathology. 2. Calcific density adjacent to the greater tuberosity which could reflect calcific tendinitis. 3. Mild to moderate left shoulder degenerative arthritis. [facility], , 11/09/2024 4:28 PM
[2024-11-09 17:28] VITALS: BP 149/81; PULSE 68; RESP 20; TEMP 98
== END 2024-11-09 17:26 | disposition home or self-care (01) ==
LOC: EC 15:23
DX: S43.402A Unspecified sprain of left shoulder joint, initial encounter (principal); Z87.891 Personal history of nicotine dependence; Z88.0 Allergy status to penicillin; Z88.1 Allergy status to other antibiotic agents; Z88.2 Allergy status to sulfonamides; Z88.5 Allergy status to narcotic agent; Z88.6 Allergy status to analgesic agent; Z88.7 Allergy status to serum and vaccine; Z88.8 Allergy status to other drugs, medicaments and biological substances; Z91.040 Latex allergy status; Z91.041 Radiographic dye allergy status; X50.9XXA Other and unspecified overexertion or strenuous movements or postures, initial encounter
CPT/HCPCS: 99283